=== PATIENT | female | born 2000 | race Caucasian/White ===

== ENCOUNTER → 2019-04-02 | Outpatient (CLI) | payer OTHER | LOC: COL.RAD 13:48 | DX: M53.3 Sacrococcygeal disorders, not elsewhere classified (principal) | CPT/HCPCS: G0260; J3301 ==

== ENCOUNTER 2020-11-29 14:22 | Outpatient (CLI) | payer MEDICAID ==
[~2020-11-29] VITALS: Ht 165.1 cm; Wt 72.3 kg
--- NOTE | 2020-11-29 14:30 | NUR ---
Patient ambulatory to LR4, changed into gown, FHR/TOCO monitors placed. Isabelle states she "was at the store and felt a gush of fluid and went home and underwear were wet". Plan of care discussed. 1435: SVE per Kimi Pederson RN- closed/thick/high and amniotest negative. White discharge noted on glove. Patient states she currently has a yeast infection. Dr. Avila called and notified. See physician notification. Orders to reactive FHR and patient can go home.
[2020-11-29] MEDS ORDERED: NATURAL IRON65 MG (14:41)
[2020-11-29] MEDS ORDERED: PRENATAL TABLET PO (14:42)
[2020-11-29] MEDS ORDERED: MONISTAT (14:42)
[2020-11-29] MEDS ORDERED: PROTONIX20 MG PO (14:42)
[2020-11-29 15:15] VITALS: BP 130/59; PULSE 98; TEMP 98.1
--- NOTE | 2020-11-29 15:15 | NUR ---
Patient given discharge instructions and questions answered. 1515: Patient ambulates off unit with friend.
== END 2020-11-29 15:15 | disposition home or self-care (01) ==
LOC: LDRO 14:22
DX: O41.93X0 Disorder of amniotic fluid and membranes, unspecified, third trimester, not applicable or unspecified (principal); Z3A.33 33 weeks gestation of pregnancy

== ENCOUNTER 2021-01-05 06:04 | Inpatient (IN) | payer MEDICAID ==
[~2021-01-05] VITALS: Ht 162.6 cm; Wt 73.1 kg
[2021-01-05] VITALS (60 sets, daily range): BP systolic 87–153; BP diastolic 47–87; PULSE 75–137; TEMP 98–99
[~2021-01-05 06:04] MED LIST: MONISTAT; NATURAL IRON65 MG; PRENATAL TABLET PO; PROTONIX20 MG PO
--- NOTE | 2021-01-05 06:10 | NUR ---
PT ARRIVES AMBULATORY TO UNIT WITH FOB AND MATERNAL MOTHER, ASSISTED INTO GOWN AND ORIENTED TO LABOR ROOM AND PLAN OF CARE FOR IOL. DENIES LEAKING OF FLUID/BLEEDING, REPORTS POSITIVE MOVEMENT AND DENIES PAINFUL CONTRACTIONS. BABY PLACED ON EFM/TOCO MONITOR. CATEGORY 1 TRACING AT THIS TIME. 0640: SVE /-2, PITOCIN STARTED AT 2MU PER PROTOCOL.
[2021-01-05 07:12] LABS: HEMOGLOBIN 10.4 g/dl (12.5-16.0); MEAN CELL VOLUME 91 fl (80.0-100.0); MEAN CORPUSCULAR HEMOGLOBIN 31 pg (27.0-31.0); MEAN CORPUSCULAR HGB CONC 33 g/dl (33.0-37.0); MEAN PLATELET VOLUME 9.1 fl (7.4-10.4); PLATELET COUNT 310 K/mm3 (130-400); RED BLOOD COUNT 3.41 M/mm3 (4.10-5.30)
[2021-01-05 07:20] LABS: HEMATOCRIT 31.1 % (37.0-47.0)
[2021-01-05 08:05] LABS: BAND 12 % (0-10); LYMPHOCYTE 27 % (20.0-51.0); METAMYELOCYTE 1 % (0-0); NEUTROPHILS 50 % (42.0-75.2); PLATELET ESTIMATE NORMAL (NORMAL)
--- NOTE | 2021-01-05 08:37 | NUR ---
AT PT BEDSIDE, REVIEWS STRIP AND DISCUSSES POC. SVE /-2, AROM WITH CLEAR FLUID. PT AFEBRILE AND VSS AT THIS TIME. DENIES FURTHER QUESTIONS OR CONCERNS, CONTINUE WITH IOL PLAN OF CARE PER PROTOCOL.
--- NOTE | 2021-01-05 13:35 | NUR ---
1335: SYLWIA BAI ROLLING MACHINE OPERATOR AT BEDSIDE, EDUCATES PT ON EPIDURAL PLACEMENT AND BODY POSITIONING, PT PLACED SITTING ON EDGE OF BED, FHR TRACING LIMITED DUE TO POSITION, INTERMITTENT CATEGORY 1 TRACING THROUGHOUT EPIDURAL PLACEMENT, PALPABLE CONTRACTIONS CONTINUE Q1-3 MINUTES APART WITH FIRM FUNDUS 1344:SINGLE SHOT ADMINISTERED PER SYLWIA BAI ROLLING MACHINE OPERATOR, SEE ANESTHESIA RECORD FOR FURTHER DOSING
--- NOTE | 2021-01-05 15:15 | NUR ---
RN AT BEDSIDE, DIFFICULTY TRACING TOCO, CONTRACTIONS FIRM UPON PALPATION Q2-3MIN, PT REPORTS TOTAL RELIEF FROM EPIDURAL, DENIES PAIN OR FURTHER NEEDS, WILL CONTINUE TO READJUST TOCO APPROPRIATELY AND PALPATE FOR CONTRACTION FREQUENCY PER PROTOCOL
--- NOTE | 2021-01-05 16:44 | NUR ---
DECELS NOTED, DIFFICULTY DETERMINING ONSET DUE TO POOR TOCO TRACING, RN AT BEDSIDE ADJUSTING TOCO, WILL CONTINUE TO MONITOR
--- NOTE | 2021-01-05 17:40 | NUR ---
1740- Bilateral side lying hip release. Repositioned high fowlers with peanut ball.
--- NOTE | 2021-01-05 19:21 | NUR ---
UNABLE TO GRAPH CONTRACTIONS. TOCO ADUJUSTED.
--- NOTE | 2021-01-05 20:19 | NUR ---
DIFFICULTY TRACING DUE TO MATERNAL POSITION. RN AT BEDSIDE. CONTRACTIONS EVERY 2 MIN. UTERUS SOFT BETWEEN CONTRACTIONS.
--- NOTE | 2021-01-05 20:23 | NUR ---
DR. HUGHES NOTIFIED OF 0 SVE OF /-2. ALSO UPDATED ON THE DECREASE OF PITOCIN TO 20 AT 1900 DUE TO CONTRACTIONS NOT TRACING AND LATE DECELRATIONS. WILL CALL BACK IN ONE HOUR FOR AN UPDATE.
--- NOTE | 2021-01-05 22:54 | NUR ---
DR. HUGHES UPDATED ON PATENTS SVE OF 10 AT 2039. WILL START PUSHING PER DOCTORS ORDER DR HERNANDEZ TO HOSPITAL
--- NOTE | 2021-01-05 22:59 | NUR ---
DR HUGHES AT BEDSIDE AT 2055. STARTED PUSHING AT 2099.
--- NOTE | 2021-01-05 23:03 | NUR ---
OF VIABLE FEMALE AT 2108. SPONTANEOUS DELIVERY OF PLACENTA AT 2115. METHERGINE, HEMABATE AND CYTOTEC BROUGHT TO BEDSIDE PER DR. CAMACHOURES ORDERS. METHERGINE GIVEN AT 2119, HEMABATE GIVEN AT 2124 AND CYTOTEC GIVEN AT 2134. 1ST FUNDAL RUB WAS DONE AT 2144 AND FUNDUS IS FIRM AND 1 BELOW AT THIS TIME. WILL CONTINUE TO MONITOR.
[2021-01-06 00:45] VITALS: BP 100/57; PULSE 83
[2021-01-06 04:45] VITALS: BP 101/59; PULSE 85; TEMP 100.2
[2021-01-06 06:21] LABS: MEAN CELL VOLUME 93 fl (80.0-100.0); MEAN CORPUSCULAR HGB CONC 34 g/dl (33.0-37.0); MEAN PLATELET VOLUME 9.1 fl (7.4-10.4); PLATELET COUNT 247 K/mm3 (130-400); RED BLOOD COUNT 2.62 M/mm3 (4.10-5.30); REDCELL DISTRIBUTION WIDTH-CV 14.1 % (11.5-14.5)
[2021-01-06 06:32] LABS: HEMATOCRIT 24.3 % (37.0-47.0); HEMOGLOBIN 8.2 g/dl (12.5-16.0); MEAN CORPUSCULAR HEMOGLOBIN 31 pg (27.0-31.0)
[2021-01-06 07:15] LABS: BAND 37 % (0-10); LYMPHOCYTE 4 % (20.0-51.0); NEUTROPHILS 52 % (42.0-75.2); PLATELET ESTIMATE NORMAL (NORMAL)
[2021-01-06 09:30] VITALS: BP 100/62; PULSE 95; TEMP 98.2
[2021-01-06 13:00] VITALS: BP 106/69; PULSE 101; TEMP 98.3
[2021-01-06 17:38] VITALS: BP 103/63; PULSE 87; TEMP 98.1
[2021-01-06 21:00] VITALS: BP 106/70; PULSE 80; TEMP 98.8
[2021-01-07 06:51] LABS: MEAN CELL VOLUME 93 fl (80.0-100.0); MEAN CORPUSCULAR HGB CONC 33 g/dl (33.0-37.0); MEAN PLATELET VOLUME 9.3 fl (7.4-10.4); PLATELET COUNT 233 K/mm3 (130-400); RED BLOOD COUNT 2.59 M/mm3 (4.10-5.30); REDCELL DISTRIBUTION WIDTH-CV 14.4 % (11.5-14.5)
[2021-01-07 06:59] LABS: HEMOGLOBIN 7.9 g/dl (12.5-16.0); MEAN CORPUSCULAR HEMOGLOBIN 31 pg (27.0-31.0)
--- NOTE | 2021-01-07 07:00 | NUR ---
Rests in bed, alert, baby. Denies any needs at this time.
[2021-01-07 08:30] VITALS: BP 107/70; PULSE 80; TEMP 97.7
[2021-01-07] MEDS ORDERED: IBU800 M1 PO (11:02)
--- NOTE | 2021-01-07 12:30 | NUR ---
Discharge instructions given, verbalizes understanding.
== END 2021-01-07 12:50 | disposition home or self-care (01) | DRG 806 ==
LOC: OB 06:04 → LDR 06:04 → OB 01-06 01:00
PROVIDERS: ADMIT Student in an Organized Health Care Education/Training Program
PROC: 10E0XZZ Delivery of Products of Conception, External Approach (ICD-10-PCS; principal; 2021-01-05)
PROC: 10907ZC Drainage of Amniotic Fluid, Therapeutic from Products of Conception, Via Natural or Artificial Opening (ICD-10-PCS; 2021-01-05)
PROC: 0HQ9XZZ Repair Perineum Skin, External Approach (ICD-10-PCS; 2021-01-05)
PROC: 3E033VJ Introduction of Other Hormone into Peripheral Vein, Percutaneous Approach (ICD-10-PCS; 2021-01-05)
DX: O36.5930 Maternal care for other known or suspected poor fetal growth, third trimester, not applicable or unspecified (principal); O72.1 Other immediate postpartum hemorrhage; Z37.0 Single live birth; D64.9 Anemia, unspecified; O99.02 Anemia complicating childbirth; O70.0 First degree perineal laceration during delivery; O76 Abnormality in fetal heart rate and rhythm complicating labor and delivery; Z3A.39 39 weeks gestation of pregnancy; Q92.8 Other specified trisomies and partial trisomies of autosomes
CPT/HCPCS: J0690; J2210; J2405; J2590; J7120